=== PATIENT | female | born 1955 | race Caucasian/White ===

== ENCOUNTER → 2021-04-10 | Outpatient (CLI) | payer OTHER ==
[~2021-04-10] MED LIST: 24 HOUR ALLERG9.9 ML; ASPIR 8181 MG PO; AZELASTINE137 MCG/0.; CARAFATE1 GM PO; CELEBREX200 MG PO; FISH OIL 1,0001 EACH PO; GLUCOSAMINE CH1 EAC6 PO; KLOR-CON M2020 MEQ PO; LIPITOR TAB 1010 MG PO; MONTELUKAST SOD10 MG PO; PROTONIX40 MG PO; SOMA350 MG PO; TENORETIC 50 T1 EACH PO; XYZAL5 MG PO; ZANTAC150 MG PO; ZOLOFT50 MG PO
== END ==
LOC: KOH-I 08:06
DX: S46.092D Other injury of muscle(s) and tendon(s) of the rotator cuff of left shoulder, subsequent encounter (principal)
CPT/HCPCS: 73221